=== PATIENT | female | born 1985 | race Caucasian/White ===

== ENCOUNTER 2018-11-06 15:29 | Emergency (ER) | payer SELFPAY ==
--- NOTE | 2018-11-06 15:43 | EDM.PDOC ---
ED HPI GENERAL MEDICAL PROBLEM - General Chief Complaint: Respiratory Problem Stated Complaint: COUGH Time Seen by Provider: 11/06/18 15:31 Source of Information: Reports: Patient History Limitations: Reports: No Limitations - History of Present Illness INITIAL COMMENTS - FREE TEXT/NARRATIVE: HISTORY AND PHYSICAL: History of present illness: Patient is a 33-year-old female who presents to the ED today with concerns of a week long cough, intermittent fevers with 100 degrees, throat pain, ear pain, and body aches. Patient presents with her daughter with similar symptoms. She states that her worst symptom is the body aches and cough. She states that she started getting a headache yesterday and today. She does have a history of migraines and states that it is similar. She has been taking Tylenol and ibuprofen [id number] for symptoms. Patient denies nausea, vomiting, diarrhea, constipation, difficulties urinating , burning with urination, or any other GI or symptoms. Patient denies does have a history of asthma in which she does not have access to inhalers or nebulizers. Review of systems: As per history of present illness and below otherwise all systems reviewed and negative. Past medical history: As per history of present illness and as reviewed below otherwise noncontributory. Surgical history: As per history of present illness and as reviewed below otherwise noncontributory. Social history: See social history for further information Family history: As per history of present illness and as reviewed below otherwise noncontributory. Physical exam: General: Alert, oriented, and in no acute distress. Patient is tired appearing but is sitting comfortably on exam table. HEENT: Atraumatic, normocephalic, pupils equal and reactive bilaterally, negative for conjunctival pallor or scleral icterus, mucous membranes moist, TMs normal bilaterally, throat is mildly erythematous, neck supple, nontender, trachea midline. No drooling or trismus noted. No meningeal signs. No hot potato voice noted. Lungs: There is slight high pitched wheezing and the lung bases bilaterally otherwise, clear to auscultation, breath sounds equal bilaterally, chest nontender. Heart: S1S2, regular rate and rhythm without overt murmur Abdomen: Soft, nondistended, nontender. Negative for masses or hepatosplenomegaly. Negative for costovertebral tenderness. Pelvis: Stable nontender. Genitourinary: Deferred. Rectal: Deferred. Skin: Intact, warm, dry. No lesions or rashes noted. Extremities: Atraumatic, negative for cords or calf pain. Neurovascular unremarkable. Neuro: Awake, alert, oriented. Cranial nerves II through XII unremarkable. Cerebellum unremarkable. Motor and sensory unremarkable throughout. Exam nonfocal. Notes: Patient is tired appearing on exam. Due to wheezing within the lung bases as well as patient's history of flu like symptoms, will do a chest x-ray and influenza swab today. Influenza screening and chest x-ray are benign. Patient does have the history of asthma although does not have her inhalers available to her. We'll give her a Medrol Dosepak and albuterol inhaler. Encouraged her to follow up with her primary care provider. She voices understanding and is agreeable to plan of care. Denies any further questions or concerns at this time. Diagnostics: Influenza, Chest XR Therapeutics: None Prescription: Albuterol and Medrol Dosepak Impression: Viral Upper Respiratory Illness Asthma exacerbation Plan: 1. Stop Smoking. Use inhaler as needed for shortness of breath / cough. 2. Urinate Tylenol and ibuprofen as needed for pain/discomfort. 3. Return to the ED as needed and as discussed. Definitive disposition and diagnosis as appropriate pending reevaluation and review of above. Headache Pain Score (Numeric/FACES): 7 - Related Data Allergies Allergy/AdvReac Type Severity Reaction Status Date / Time No Known Allergies Allergy Verified 11/06/18 15:46 Home Meds: Home Meds Iud - Merena 1 dose ICERVIC ASDIRECTED 02/27/18 [History] Past Medical History HEENT History: Reports: None Cardiovascular History: Reports: None Respiratory History: Reports: None Gastrointestinal History: Reports: None Genitourinary History: Reports: None [employer] History: Reports: Musculoskeletal History: Reports: None Neurological History: Reports: None Psychiatric History: Reports: Anxiety, Depression Endocrine/Metabolic History: Reports: None Hematologic History: Reports: None Immunologic History: Reports: None Oncologic (Cancer) History: Reports: None Dermatologic History: Reports: None - Infectious Disease History Infectious Disease History: Reports: None - Past Surgical History Head Surgeries/Procedures: Reports: None Musculoskeletal Surgical History: Reports: Other (See Below) Other Musculoskeletal Surgeries/Procedures:: facial reconstruction Social & Family History - Family History Family Medical History: Noncontributory - Caffeine Use Caffeine Use: Reports: Coffee ED ROS GENERAL - Review of Systems Review Of Systems: ROS reveals no pertinent complaints other than HPI. ED EXAM, GENERAL - Physical Exam Exam: See Below (See dictation) Course - Vital Signs Last Recorded V/S: Last Vital Signs Temp 98.0 F 11/06/18 15:43 Pulse 91 11/06/18 15:43 Resp 18 11/06/18 15:43 BP 127/79 11/06/18 15:43 Pulse Ox 96 11/06/18 15:43 - Orders/Labs/Meds Orders: Active Orders 24 hr Category Date Time Status Chest 2V [CR] Stat Exams 11/06/18 15:55 Taken Departure - Departure Time of Disposition: 17:21 Disposition: Home, Self-Care 01 Clinical Impression: Viral upper respiratory illness, Asthma exacerbation, mild - Discharge Information Referrals: PCP,None [Primary Care Provider] - Forms: ED Department Discharge Additional Instructions: The following information is given to patients seen in the emergency department who are being discharged to home. This information is to outline your options for follow-up care. We provide all patients seen in our emergency department with a follow-up referral. The need for follow-up, as well as the timing and circumstances, are variable depending upon the specifics of your emergency department visit. If you don't have a primary care physician on staff, we will provide you with a referral. We always advise you to contact your personal physician following an emergency department visit to inform them of the circumstance of the visit and for follow-up with them and/or the need for any referrals to a consulting specialist. The emergency department will also refer you to a specialist when appropriate. This referral assures that you have the opportunity for follow-up care with a specialist. All of these measure are taken in an effort to provide you with optimal care, which includes your follow-up. Under all circumstances we always encourage you to contact your private physician who remains a resource for coordinating your care. When calling for follow-up care, please make the office aware that this follow-up is from your recent emergency room visit. If for any reason you are refused follow-up, please contact the [facility] Emergency Department at and asked to speak to the emergency department charge nurse. [facility] [address] [place] [address] [facility] [address] [place] [id number] 1. Stop Smoking. Use inhaler as needed for shortness of breath / cough. 2. Urinate Tylenol and ibuprofen as needed for pain/discomfort. 3. Return to the ED as needed and as discussed. - My Orders Last 24 Hours: My Active Orders 11/06/18 15:55 Chest 2V [CR] Stat - Assessment/Plan Last 24 Hours: My Active Orders 11/06/18 15:55 Chest 2V [CR] Stat
--- NOTE | 2018-11-06 17:38 | CR ---
INDICATION: Cough. TECHNIQUE: Two views the chest PA and lateral. COMPARISON: 02/27/2018. FINDINGS: Heart and mediastinum are normal. Lungs are clear. No consolidations or pleural effusions are identified. Trachea is midline. No pneumothorax. IMPRESSION: No evidence of acute disease. Dictated by Nato Swanson MD @ Nov 06 2018 5:35PM Signed by Dr. Nato Swanson @ Nov 06 2018 5:36PM
== END 2018-11-06 17:43 | disposition home or self-care (01) ==
LOC: MW.ED 15:29
DX: J45.901 Unspecified asthma with (acute) exacerbation (principal); J06.9 Acute upper respiratory infection, unspecified
CPT/HCPCS: 71046; 71046-26; 87804; 99283